=== PATIENT | female | born 1995 | race Caucasian/White ===

== ENCOUNTER → 2020-01-23 14:45 | Outpatient (BNVA) | payer MEDICAID, SELFPAY | PROVIDERS: PCP Family Medicine; Visit Provider Orthopaedic Surgery | DX: Z11.59 Encounter for screening for other viral diseases (principal); Z20.828 Contact with and (suspected) exposure to other viral communicable diseases | CPT/HCPCS: 87635 ==

== ENCOUNTER 2020-01-26 07:44 | Day surgery (SDC) | payer MEDICAID, SELFPAY ==
[2020-01-25 08:10] VITALS: BMI 35.9
[2020-01-26 07:53] VITALS: BP 137/92; PULSE 89; RESP 18; TEMP 36.3; O2SAT 98
--- NOTE | 2020-01-26 08:11 | W.PM.OPSUD ---
Surgery/Procedure H&P Update DATE OF PROCEDURE: January 26, 2020 DATE H&P PERFORMED: 01/23/20 PREOP DIAGNOSIS: Mass right wrist PLANNED PROCEDURE: Operation Date: 01/26/20 11:05 Proposed Procedures p Excision right wrist Mass Upper Extremity 31153 R22.31(Right) - Bob Mcguire MD
[2020-01-26] MEDS: sodium chloride 0.9% 1,000 ML 30 ML IV (08:15)
--- NOTE | 2020-01-26 08:17 | ANES.PREANE2 ---
Pre-Anesthetic Assessment Pre-Anesthetic Assessment: Height/Weight: Height 1.65 m Weight 97.976 kg Temp Pulse Resp BP Pulse Ox 97.3 F L 89 18 137/92 98 01/26/20 07:53 01/26/20 07:53 01/26/20 07:53 01/26/20 07:53 01/26/20 07:53 Preop Diagnosis: Mass right wrist Proposed Procedure: Operation Date: 01/26/20 11:05 Proposed Procedures p Excision right wrist Mass Upper Extremity 01229 R22.31(Right) - Bob Mcguire MD Was Beta Haylee taken within 24 hours: N/A Last intake: Intake Last Liquid Date 01/25/20 Last Solid Date 01/25/20 Social: Social History: No alcohol and No tobacco Exam: Pre-Anes Outpt Exam: alert, oriented x 3, clear to auscultation bilaterally and regular rate & rhythm Airway: Submandibular: WNL Cervical ROM: WNL MP: 2 History/ROS: No significant complaints Pulmonary: Pulmonary: None reported CV/HEM: CV/HEM: None reported : : None reported Hepatic: Hepatic: None reported GI: GI: None reported Metabolic: Metabolic: Morbid obesity Musc/skel: Musc/skel: None reported Neuropsych: Neuropsych: None reported Anesthetic Plan: ASA status: 2 Anesthesia: General Meds/Allergies Current Medications: Current Medications Generic Name Dose Route Start Last Admin Trade Name Freq PRN Reason Stop Dose Admin Sodium Chloride 1,000 mls @ 30 ml s/hr 01/26/20 08:00 01/26/20 08:15 Sodium Chloride 0.9% IV 01/27/20 07:59 30 mls/hr .Q24H TULIO Administration PFSH Anesthesia PFSH: Social History Smoking and tobacco status: current every day smoker e-cigarettes E-Cigarette Details: vaporizer device Alcohol intake: never Data Anesthesia Cardiac Studies: No Data to Display
[2020-01-26 08:23] LABS: OR HCG Qualitative Urine Negative (Negative)
[2020-01-26 09:19] VITALS: BP 96/81; PULSE 78; RESP 18; TEMP 36.5; O2SAT 98
[2020-01-26] MEDS: HYDROcodone-acetaminophen 5-325 mg Tablet 1 TAB PO (09:40)
--- NOTE | 2020-01-26 09:41 | PM.OP ---
Operative Report Date of procedure: January 26, 2020 Pre-op Diagnosis: Mass right wrist Post-op Diagnosis: Ganglion right wrist Post-op Findings: Ganglion right wrist Procedure Done: Excision ganglion right wrist Pathology: none sent Anesthesia: Nerve Block (Renay block) Estimated blood loss (mL): 5 Tourniquet time (min): 21 Findings: The patient had a ganglion approximately 15 mm x 15 mm over the central dorsal wrist. Condition: stable Disposition: PACU Procedure: The patient was taken to the operating room and given a Renay block and 1 g of Ancef. Timeout was performed. She is prepped and draped with the right arm exposed. A 2 cm long transverse incision was made in line with the flexion creases dorsally over the mass. Dissection was carried down bluntly but. The ganglion was identified in the subcutaneous tissues. Utilizing blunt hemostats circumferential dissection was accomplished elevating it off the deep extensor tendons. As no atypical characteristics were identified it was not sent for pathology. The wound was irrigated with saline. Deep tissues were closed with 3-0 Vicryl. The skin was closed with interrupted 3-0 Prolene. Compressive wrap was applied. The patient was taken to recovery room in stable condition.
[2020-01-26 11:14] VITALS: BP 120/64; PULSE 78; RESP 18; O2SAT 97
--- NOTE | 2020-01-26 20:18 | ANE.PACU2 ---
Inpatient post-anesthesia follow up: Airway intact: Yes Vital signs: Temperature 97.7 F Pulse Rate 78 Respiratory Rate 18 Blood Pressure 120/64 Pulse Oximetry 97 Oxygen Delivery Me thod Room Air Oxygen Flow Rate Fraction of Inspir ed Oxygen Hydration adequate: Yes Nausea and vomiting: No Pain level: 2 Mental status: Baseline
== END 2020-01-26 10:00 | disposition home or self-care (01) ==
PROVIDERS: Anesthesiology; PCP Family Medicine; Visit Provider Orthopaedic Surgery
PROC: (CPT 25111; principal; 2020-01-26 10:55)
DX: M67.431 Ganglion, right wrist (principal); F17.290 Nicotine dependence, other tobacco product, uncomplicated
CPT/HCPCS: 25111; 12345; 81025; 84703; J0690; J2250; J2704; J3490; J7030

== ENCOUNTER 2020-09-29 17:59 | Emergency (ER) | payer MEDICAID, SELFPAY ==
[2020-09-29 18:20] VITALS: BP 106/73; PULSE 118; RESP 16; TEMP 38.1; O2SAT 97; BMI 29.2
[2020-09-29 18:27] VITALS: O2SAT 96
--- NOTE | 2020-09-29 18:36 | XRR_ITS ---
PROCEDURE INFORMATION: Exam: XR Chest Exam date and time: 09/29/2020 6:36 PM Age: 25 years old Clinical indication: Cough TECHNIQUE: Imaging protocol: XR of the chest. Views: 1 view. COMPARISON: CR Chest 1 [place] [id number] 12/07/2016 3:07 AM FINDINGS: Lungs: No pulmonary consolidation. Pleural spaces: No pleural effusion.; No pneumothorax. Heart/Mediastinum: The cardiac silhouette is unchanged. No gross evidence of pneumomediastinum. Bones/joints: No gross fracture. XR/XR chest 1V portable [id number] IMPRESSION: No acute cardiopulmonary abnormality identified.
[2020-09-29] MEDS: acetaminophen 500 mg Tablet 1000 MG PO (18:41)
--- NOTE | 2020-09-29 18:52 | ED_ITS ---
HPI - COVID General: Chief Complaint: COVID symptoms Stated Complaint: Covid Symptoms Time Seen by Provider: 09/29/20 18:35 Triage information: Has fever, cough or shortness of breath . Exposure to COVID + person last 14 days History of Present Illness: HPI Narrative: Patient started with sore throat on Thursday symptoms since Thursday. MD complaint: reported COVID exposure and has COVID symptoms Prior covid testing: no COVID 19 common symptoms: positive fever(s), chills, cough, non-productive cough, body aches, throat pain, nasal congestion and diarrhea; negative headache(s) COVID 19 other sytmptoms: negative chest pain Onset (ago): day(s) Severity: moderate Treatment prior to arrival: ibuprofen COVID Results: SARS-CoV-2 RNA (RT-PCR) Not detected (NOT DETECTED) 01/23/20 14:45 01/23/20 Review of Systems Const: Reports: fever(s), chills and body aches Eyes: Denies: change in vision or blurry vision ENMT: Reports: throat pain and nasal congestion Card: Denies: chest pain or dyspnea on exertion Resp: Reports: non-productive cough GI: Reports: diarrhea Musc: Denies: extremity pain Skin/Breast: Denies: rash Neuro: Denies: headache(s) Psych: Denies: anxiety or depression Matthew/Lymph: Denies: easy bruising PFSH ED PFSH: Social History Smoking and tobacco status: current every day smoker e-cigarettes E-Cigarette Details: vaporizer device Alcohol intake: never Physical Exam Const: COMMON NORMALS: no acute distress Resp: COMMON NORMALS: normal respiratory effort, No retractions and No use of accessory muscles Psych: COMMON NORMALS: mental status grossly normal Course Vital Signs: Vital signs: Vital Signs Temperature 100.5 F H 09/29/20 18:20 Pulse Rate 118 H 09/29/20 18:20 Respiratory Rate 16 09/29/20 18:20 Blood Pressure 106/73 09/29/20 18:20 Pulse Oximetry 96 09/29/20 18:27 MDM - COVID COVID Results: SARS-CoV-2 RNA (RT-PCR) Not detected (NOT DETECTED) 01/23/20 14:45 01/23/20 Discharge Plan Discharge Prescriptions: No Action Graham 5-325 mg tablet 1 tab PO Q4H PRN (Reason: pain) Qty: 20 RF: 0 Coding Level of Care Code ED Photography Assistant for Terry Corley
[2020-09-29 19:21] LABS: SARS Covid-2 Antigen Positive (Negative)
[2020-09-29 20:07] VITALS: BP 117/76; PULSE 108; RESP 18; O2SAT 97
== END 2020-09-29 20:09 | disposition home or self-care (01) ==
PROVIDERS: Emergency Provider Nurse Practitioner Family; PCP Family Medicine
DX: R50.9 Fever, unspecified (principal); R05 Cough; R06.02 Shortness of breath; Z20.822 Contact with and (suspected) exposure to COVID-19; F17.290 Nicotine dependence, other tobacco product, uncomplicated
CPT/HCPCS: 71045; 87426; 99283

== ENCOUNTER 2020-10-06 18:25 | Emergency (ER) | payer MEDICAID, SELFPAY ==
[2020-10-06 18:35] VITALS: BP 104/69; PULSE 132; RESP 24; TEMP 39.4; O2SAT 97; BMI 28.3
--- NOTE | 2020-10-06 19:03 | XRR_ITS ---
PROCEDURE INFORMATION: Exam: XR Chest Exam date and time: 10/06/2020 7:03 PM Age: 25 years old Clinical indication: Fever TECHNIQUE: Imaging protocol: XR of the chest. Views: 1 view. Total images: 1 COMPARISON: CR (CHEST, ) 09/29/2020 6:41 PM FINDINGS: Lungs: Subsegmental ground-glass interstitial lung disease right lower lobe of active pneumonitis. Pleural spaces: Unremarkable. No pleural effusion. No pneumothorax. Heart/Mediastinum: Unremarkable. No cardiomegaly. Bones/joints: Scoliosis. XR/XR chest 1V portable [id number] IMPRESSION: Right lower lobe pneumonitis.
--- NOTE | 2020-10-06 19:14 | ED_ITS ---
HPI - SOB/Dyspnea General: Chief Complaint: Shortness of Breath/Dyspnea Stated Complaint: SOB/ COVID POSITIVE Time Seen by Provider: 10/06/20 19:13 History of Present Illness: HPI Narrative: 25-year-old female comes in today with complaints of general body aches and fever. Patient was ill 1 week ago and was diagnosed with COVID-19 on the . Patient had been ill about 5 days prior to that diagnosis. Patient comes in today for continued feeling of malai se and poor oral intake. Patient appears mildly unwell but not toxic. Patient appears no acute distress. MD elicited complaint: shortness of breath and cough Pertinent past history: other (covid 19 dx on ) Onset (ago): day(s) Associated symptoms: Reports fever(s) Review of Systems General: Reports: 10 or more systems reviewed and unremarkable except in HPI and below Const: Reports: fever(s) and malaise Resp: Reports: dyspnea PFSH ED PFSH: Social History Smoking and tobacco status: current every day smoker e-cigarettes E-Cigarette Details: vaporizer device Alcohol intake: never Physical Exam Const: COMMON NORMALS: no acute distress and patient oriented x3 GENERAL APPEARANCE: cooperative HENMT: COMMON NORMALS: normocephalic, TM's normal bilaterally and Normal external nose present HEAD & SCALP: normal to inspection and normocephalic NOSE: Normal external nose present TYMPANIC MEMBRANE: TM's normal bilaterally MOUTH: Normal oral and palatal mucosa present THROAT: posterior oropharynx normal Eye: GENERAL EYE: appearance normal, both eyes and all related structures Neck/C-Spine: COMMON NORMALS: full ROM Lymph: LYMPHATIC: no lymphadenopathy noted Chest: COMMONS NORMALS: normal inspection of the chest Resp: COMMON NORMALS: normal respiratory effort EFFORT & INSPECTION: Yes able to speak in complete sentences AUSCULTATION: diminished lung sounds Cardio: COMMON NORMALS: regular rate and regular rhythm RATE: regular rate RHYTHM: regular rhythm GI: COMMON NORMALS: non-tender : COMMON NORMALS: Yes no CVA tenderness BLADDER/KIDNEY EXAM: Yes no CVA tenderness Back/Pelvis: COMMON NORMALS: no CVA tenderness and thoracic and lumbar spine normal to inspection Extremity: COMMON NORMALS: normal to inspection Neuro: COMMON NORMALS: patient oriented x3 and moves all extremities Psych: COMMON NORMALS: mental status grossly normal and cooperative Skin: COMMON NORMALS: no rashes or lesions noted GENERAL SKIN EXAM: no rashes or lesions noted Course Vital Signs: Vital signs: Vital Signs Temperature 102.9 F H 10/06/20 18:35 Pulse Rate 132 H 10/06/20 18:35 Respiratory Rate 24 H 10/06/20 18:35 Blood Pressure 104/69 10/06/20 18:35 Pulse Oximetry 97 10/06/20 18:35 MDM - SOB/Dyspnea MDM Narrative: Medical decision making narrative: 25-year-old female comes in today with complaints of fever and malaise. Patient was diagnosed with COVID-19 1 week ago after being sick for about 4 to 5 days. Patient appears unwell but not toxic. Vital signs shows a temperature of 102.9. Pulse was 132. Patient reports some nausea and vomiting still. On exam respirations were even decreased in the bases. Abdomen soft nontender. Skin is warm and dry. Differential diagnosis includes COVID-19, pneumonia, dehydration. Chest x-ray notes a right lower lobe pneumonia. CBC shows a white count of 5.4, CRP was 109, CMP showed some mild decrease in potassium and sodium at 135 and 3.2. Patient was also concerned of exposure to chlamydia. I am concerned patient might have a secondary bacterial pneumonia to her COVID-19 we will start her on some doxycycline which will then also cover chlamydia, urine sample was also collected and sent to lab for gonorrhea chlamydia evaluation. Patient will be continued on doxycycline 100 mg twice a day for 7 days, patient be placed on some dexamethasone for 6 mg daily for 5 days, and patient will be given albuterol inhaler 2 puffs every 4 hours for shortness of breath, wheezing, and cough. Patient reported understanding of care plan and need for follow-up or return to the ER. Lab Data: Labs: Lab Results 10/06/20 10/06/20 10/06/20 Range/Units 20:00 20:00 20:00 WBC 5.4 (4.0-10.0) 10^3/ uL RBC 4.02 L (4.1-5.3) 10^6/u L Hgb 12.4 (11.5-15.3) g/dL Hct 34.4 L (37.0-47.0) % MCV 85.6 (81-99) fL MCH 30.8 (28.0-34.0) pg MCHC 36.0 (30.0-36.0) g/dL RDW 13.2 (12.1-15.1) % Plt Count 141 (130-400) 10^3/c mm MPV 10.4 (7.4-10.4) fL Neut % (Auto) 84.5 % Lymph % (Auto) 11.7 % Broome % (Auto) 3.2 % Eos % (Auto) 0.0 % Baso % (Auto) 0.0 % Neut # (Auto) 4.55 (1.8-7.7) 10^3/u L Lymph # (Auto) 0.6 L (0.8-4.8) 10^3/u L Broome # (Auto) 0.2 (0.2-0.9) 10^3/u L Eos # (Auto) 0.0 (0.0-0.8) 10^3/u L Baso # (Auto) 0.0 (0.0-0.1) 10^3/u L Nucleated RBC % (a uto) 0 % Nucleated RBCs # 0.0 /100WBC Sodium 135 L (136-145) mmol/L Potassium 3.2 L (3.5-5.1) mmol/L Chloride 99 (98-107) mmol/L Carbon Dioxide 23 (22-29) mmol/L Anion Gap 16.2 (5-19) BUN 13 (6-20) mg/dL Creatinine 0.7 (0.5-0.9) mg/dL GFR Calculation 101.1 (90-130) mL/min Glucose 115 (65-115) mg/dL Calculated Osmolal ity 281 L (285-295) mOsm/k g Lactic Acid (0.5-2.2) mmol/L Calcium 8.4 L (8.5-10.5) mg/dL Total Bilirubin 0.5 (0.15-1.2) mg/dL AST 25 (0-32) U/L ALT 9 (0-33) U/L Alkaline Phosphata se 37 (35-105) IU/L C-Reactive Protein 105.2 H (0.0-4.9) mg/L Total Protein 7.0 (6.6-8.7) g/dL Albumin 3.6 (3.5-5.2) g/dL Globulin 3.4 (1.3-4.6) g/dL HCG, Qual Negative (Negative) 10/06/20 Range/Units 20:00 WBC (4.0-10.0) 10^3/ uL RBC (4.1-5.3) 10^6/u L Hgb (11.5-15.3) g/dL Hct (37.0-47.0) % MCV (81-99) fL MCH (28.0-34.0) pg MCHC (30.0-36.0) g/dL RDW (12.1-15.1) % Plt Count (130-400) 10^3/c mm MPV (7.4-10.4) fL Neut % (Auto) % Lymph % (Auto) % Broome % (Auto) % Eos % (Auto) % Baso % (Auto) % Neut # (Auto) (1.8-7.7) 10^3/u L Lymph # (Auto) (0.8-4.8) 10^3/u L Broome # (Auto) (0.2-0.9) 10^3/u L Eos # (Auto) (0.0-0.8) 10^3/u L Baso # (Auto) (0.0-0.1) 10^3/u L Nucleated RBC % (a uto) % Nucleated RBCs # /100WBC Sodium (136-145) mmol/L Potassium (3.5-5.1) mmol/L Chloride (98-107) mmol/L Carbon Dioxide (22-29) mmol/L Anion Gap (5-19) BUN (6-20) mg/dL Creatinine (0.5-0.9) mg/dL GFR Calculation (90-130) mL/min Glucose (65-115) mg/dL Calculated Osmolal ity (285-295) mOsm/k g Lactic Acid 1.5 (0.5-2.2) mmol/L Calcium (8.5-10.5) mg/dL Total Bilirubin (0.15-1.2) mg/dL AST (0-32) U/L ALT (0-33) U/L Alkaline Phosphata se (35-105) IU/L C-Reactive Protein (0.0-4.9) mg/L Total Protein (6.6-8.7) g/dL Albumin (3.5-5.2) g/dL Globulin (1.3-4.6) g/dL HCG, Qual (Negative) Discharge Plan Discharge Patient Disposition: Home Clinical Impression: COVID-19 Pneumonia Qualifiers: Pneumonia type: due to unspecified organism Laterality: right Lung location: lower lobe of lung Qualified Code(s): J18.9 - Pneumonia, unspecified organism Condition: Stable Prescriptions: New doxycycline monohydrate 100 mg capsule 100 mg PO BID 7 Days Qty: 14 RF: 0 ondansetron 4 mg tablet,disintegrating 4 mg PO Q8H PRN (Reason: nausea and vomiting) Qty: 7 RF: 0 dexamethasone 6 mg tablet 6 mg PO DAILY Qty: 5 RF: 0 No Action [place] 5-325 mg tablet 1 tab PO Q4H PRN (Reason: pain) Qty: 20 RF: 0 Discharge Orders: Discharge ED (Routine); Ordered 10/06/20 Ordered By: Uli Head Referrals: Teodoro Alba MD [Primary Care Provider] - Discharge Diet: Usual diet Discharge Activity: Increase activity as tolerated Patient Instructions: Pneumonia (ED), Opioid Safety Activity Restrictions/Additional Instructions: Drink plenty of fluids. Take doxycycline twice a day with food on your stomach to prevent nausea. Use antinausea medication as needed for nausea. Take dexamethasone daily to help with cough and congestion. Use albuterol inhaler 2 puffs every 4 hours as needed for shortness of breath, wheezing, cough. Follow- up with primary care in 1 week. Return to the emergency department for new concerns. Stand Alone Forms: Work/School Release Coding Level of Care Code ED Insurance Underwriter Sales for Terry Fwnehemias Exam Comprehensive
[2020-10-06] MEDS: ketorolac 30 mg/mL INJ 15 MG IVP (20:08)
[2020-10-06] MEDS: acetaminophen 500 mg Tablet 1000 MG PO (20:09)
[2020-10-06] MEDS: dexamethasone 4 mg/mL INJ 6 MG IVP (20:09)
[2020-10-06] MEDS: sodium chloride 0.9% 1,000 ML 999 ML IV (20:10)
[2020-10-06 20:11] LABS: Hematocrit 34.4 % (37.0-47.0); Hemoglobin 12.4 g/dL (11.5-15.3); Lymphocytes # 0.6 10^3/uL (0.8-4.8); Lymphocytes % 11.7 %; Mean Corpuscular Hemoglobin 30.8 pg (28.0-34.0); Mean Corpuscular Volume 85.6 fL (81-99); Mean Platelet Volume 10.4 fL (7.4-10.4); Monocytes # 0.2 10^3/uL (0.2-0.9); Monocytes % 3.2 %; Neutrophils # 4.55 10^3/uL (1.8-7.7); Neutrophils % 84.5 %; Nucleated Red Blood Cells % 0 %; Platelet Count 141 10^3/cmm (130-400); Red Blood Count 4.02 10^6/uL (4.1-5.3); Red Cell Distribution Width 13.2 % (12.1-15.1); White Blood Count 5.4 10^3/uL (4.0-10.0)
[2020-10-06 20:33] LABS: HCG, Serum Qual Negative (Negative)
[2020-10-06 20:44] LABS: Lactic Sepsis W/Reflex 1.5 mmol/L (0.5-2.2)
[2020-10-06 20:45] LABS: Alanine Aminotransferase 9 U/L (0-33); Albumin Level 3.6 g/dL (3.5-5.2); Alkaline Phosphatase 37 IU/L (35-105); Anion Gap 16.2 (5-19); Aspartate Amino Transferase 25 U/L (0-32); Blood Urea Nitrogen 13 mg/dL (6-20); C Reactive Protein 105.2 mg/L (0.0-4.9); Calcium 8.4 mg/dL (8.5-10.5); Carbon Dioxide 23 mmol/L (22-29); Chloride 99 mmol/L (98-107); Globulin 3.4 g/dL (1.3-4.6); Glomerular Filtration Rate 101.1 mL/min (90-130); Glucose 115 mg/dL (65-115); Osmolality Calculated 281 mOsm/kg (285-295); Potassium 3.2 mmol/L (3.5-5.1); Sodium 135 mmol/L (136-145); Total Bilirubin 0.5 mg/dL (0.15-1.2)
[2020-10-06 20:59] LABS: Slide Review Slide Review Perform
[2020-10-06 21:16] VITALS: BP 106/68; PULSE 92; RESP 16; O2SAT 98
[2020-10-06 21:18] VITALS: TEMP 37.4
[2020-10-06 21:28] VITALS: BP 106/68; PULSE 92; RESP 16; TEMP 37.5; O2SAT 98
[2020-10-06] MEDS: albuterol 8 gm MDI 2 PUFF INHALATION (21:57)
[2020-10-06 21:58] VITALS: PULSE 85; RESP 18; O2SAT 98
[2020-10-06 22:03] VITALS: PULSE 89
== END 2020-10-06 22:49 | disposition home or self-care (01) ==
PROVIDERS: Emergency Provider Nurse Practitioner Family; PCP Family Medicine
DX: J12.82 Pneumonia due to coronavirus disease 2019 (principal); F17.210 Nicotine dependence, cigarettes, uncomplicated
CPT/HCPCS: 71045; 80053; 83605; 84703; 85025; 86140; 87491; 87591; 87661; 94640; 96361; 96374; 96375; 99284; J1100; J1885; J3535; J7030

== ENCOUNTER 2021-06-13 19:30 | Emergency (ER) | payer MEDICAID, SELFPAY ==
[2021-06-13 19:40] VITALS: BP 130/90; PULSE 101; RESP 16; TEMP 37.1; O2SAT 97; BMI 29.2
--- NOTE | 2021-06-13 19:53 | ED_ITS ---
HPI - Allergic Reaction General: Chief complaint: Allergic Reaction Stated complaint: alllergic reaction Time Seen by Provider: 06/13/21 19:32 History of Present Illness: HPI narrative: Patient states that she took some Bufferin about 30 minutes ago and then she started itching in her eyes started swelling. She states that she has no difficulty breathing. She not had allergic reaction to this in the past. She said stomach was hurting the last couple days and she was nauseated and that is why she took this medicine. Said she has had some diarrhea also. Had exposure to some family members with stomach flu. Associated symptoms: Reports nausea; Deny abdominal pain or vomiting Review of Systems Const: Denies: fever(s), chills or body aches Eyes: Denies: eye discomfort ENMT: Denies: throat pain Card: Denies: chest pain Resp: Denies: dyspnea GI: Reports: nausea and diarrhea; Denies: abdominal pain or vomiting Skin/Breast: Reports: pruritus (After taking Bufferin 30 minutes ago) and skin swelling; Denies: rash Neuro: Denies: headache(s) Psych: Denies: depression or suicidal ideation PFS ED PFSH: Social History Smoking and tobacco status: current every day smoker e-cigarettes E-Cigarette Details: vaporizer device Alcohol intake: never Physical Exam Const: COMMON NORMALS: no acute distress, patient oriented x3 and alert HENMT: COMMON NORMALS: normocephalic and external ears normal HEAD & SCALP: normocephalic EXTERNAL EAR: Yes external ears normal Eye: COMMON NORMALS: EOMs intact bilaterally OTHER: Puffy around the eyes. Neck/C-Spine: COMMON NORMALS: no JVD Resp: COMMON NORMALS: normal respiratory effort, No use of accessory muscles and clear to auscultation bilaterally AUSCULTATION: clear to auscultation bilaterally Cardio: COMMON NORMALS: no JVD RATE: tachycardic GI: INSPECTION: Yes normal to inspection Extremity: COMMON NORMALS: normal to inspection and full ROM Neuro: COMMON NORMALS: patient oriented x3 SENSORIUM/ORIENTATION: Yes alert Psych: COMMON NORMALS: mental status grossly normal Skin: COMMON NORMALS: no rashes or lesions noted GENERAL SKIN EXAM: no rashes or lesions noted Course Vital Signs: Vital signs: Vital Signs Temperature 98.7 F 06/13/21 19:40 Pulse Rate 82 06/13/21 20:58 Respiratory Rate 16 06/13/21 20:58 Blood Pressure 108/90 06/13/21 20:58 Pulse Oximetry 97 06/13/21 20:58 MDM - Allergic Reaction Medical Decision Making Allergic reaction to Bufferin, mild. Patient responded well to medications. Abdomen is feeling better on discharge nausea medicine was given for parent case of a gastroenteritis. Patient has no significant improvement with her nausea abdominis comfort she is to follow back up here or follow-up with her primary care provider. Patient was warned to stay away from Bufferin and to be familiar with ingredients in bufferin and check her medication she takes against what is listed onBufferin label. Discharge Plan Discharge Patient Disposition: Home Clinical Impression: Allergic reaction, Gastroenteritis Condition: Stable Prescriptions: New Reglan 10 mg tablet 10 mg PO Q6H PRN (Reason: nausea and vomiting) Qty: 10 0RF No Action medroxyprogesterone 150 mg/mL Suspension 150 mg IM .COMP 0RF Rx Instructions: EVERY 3 MONTHS Discharge Orders: Discharge ED (Routine); Ordered 06/13/21 Ordered By: Aguilar Bowman Referrals: Teodoro Alba MD [Primary Care Provider] - Discharge Diet: Advance as tolerated Discharge Activity: Increase activity as tolerated Patient Instructions: Gastroenteritis (ED), General Allergic Reaction (ED) Activity Restrictions/Additional Instructions: Follow-up with medical provider as directed. Take medications as prescribed. Return to the ER or your medical provider if condition worsens. Please read and understand discharge instructions. If any questions ask please. If stomach symptoms do not improve please follow-up here or with your primary care provider. Make sure you do not take Bufferin ever again. Read the label on Bufferin and try to stay away from any ingredients that have been listed on the Bufferin label. Coding Level of Care Code ED Wire Products Inspector for Terry Fwd Exam Comprehensive
[2021-06-13] MEDS: sodium chloride 0.9% 1,000 ML 999 ML IV (20:03)
[2021-06-13] MEDS: ondansetron 2 mg/ML SDV 2 mL 4 MG IVP (20:04)
[2021-06-13] MEDS: diphenhydrAMINE 50 mg/mL SDV 1mL IVP (20:06)
[2021-06-13 20:58] VITALS: BP 108/90; PULSE 82; RESP 16; O2SAT 97
== END 2021-06-13 20:58 | disposition home or self-care (01) ==
PROVIDERS: Emergency Provider Nurse Practitioner Family; PCP Family Medicine
DX: K52.9 Noninfective gastroenteritis and colitis, unspecified (principal); T39.015A Adverse effect of aspirin, initial encounter; F17.290 Nicotine dependence, other tobacco product, uncomplicated
CPT/HCPCS: 96361; 96374; 96375; 99283; J1200; J2405; J2930; J7030

== ENCOUNTER 2021-06-18 18:06 | Emergency (ER) | payer MEDICAID, SELFPAY ==
[2021-06-18 18:23] VITALS: BP 124/93; PULSE 96; RESP 16; TEMP 36.8; O2SAT 97; BMI 29.2
[2021-06-18 18:27] VITALS: BP 116/85; PULSE 97; RESP 18; O2SAT 97
--- NOTE | 2021-06-18 18:38 | CTR_ITS ---
PROCEDURE INFORMATION: Exam: CT Abdomen And Pelvis With Contrast Exam date and time: 06/18/2021 8:14 PM Age: 26 years old Clinical indication: Abdominal pain; Generalized; Prior surgery; Surgery date: 6+ months; Surgery type: Mercedes and hernia repair; Additional info: L lower abdominal/back pain TECHNIQUE: Imaging protocol: Computed tomography of the abdomen and pelvis with contrast. Radiation optimization: All CT scans at this facility use at least one of these dose optimization techniques: automated exposure control; mA and/or kV adjustment per patient size (includes targeted exams where dose is matched to clinical indication); or iterative reconstruction. Contrast material: OMNI 300; Contrast volume: 95 ml; Contrast route: INTRAVENOUS (IV); COMPARISON: CTA Chest w Abd/Pel w* 12/07/2016 5:38 AM RADIATION DOSE METRICS: Total DLP (mGy-cm): 1680.56 FINDINGS: Liver: Normal. No mass. Gallbladder and bile ducts: Cholecystectomy. Unremarkable biliary system. Pancreas: Normal. No ductal dilation. Spleen: Normal. No splenomegaly. Adrenal glands: Normal. No mass. Kidneys and ureters: Prominent enhancement pattern of the bilateral collecting system urothelium. Negative for hydronephrosis. Negative for urolithiasis. Patchy striated pattern of the right kidney parenchyma with scattered peripheral areas of decreased attenuation. No significant perinephric inflammation. Stomach and bowel: Unremarkable. No obstruction. No mucosal thickening. Appendix: Normal appendix. Intraperitoneal space: Trace pelvic free fluid without loculation. No free air. Vasculature: Unremarkable. No abdominal aortic aneurysm. Lymph nodes: Unremarkable. No enlarged lymph nodes. Urinary bladder: Unremarkable as visualized. Reproductive: Unremarkable as visualized. Bones/joints: Unremarkable. No acute fracture. Soft tissues: Unremarkable. CT/CT abdomen pelvis w con* [id number] IMPRESSION: Bilateral ascending urinary tract infections are suspected with early acute pyelonephritis features of the right renal parenchyma.
--- NOTE | 2021-06-18 18:38 | ED_ITS ---
HPI - Abdominal Pain General: Chief Complaint: Abdominal Pain Stated Complaint: abdominal pain Time Seen by Provider: 06/18/21 18:11 Source: patient Mode of arrival: ambulatory Limitations: no limitations History of Present Illness: Patient is a 26-year-old female presents to ED today with a complaint of left sided abdominal pains. Patient states pain of been present over the past 5 days or so. She states she had been treating at home with Tylenol, Motrin, Midol, and Aspirin. She states she was seen here at our facility a few days ago following an allergic reaction to the aspirin. She states no blood work or imaging was conducted on that visit. Patient states she is continuing to have significant discomfort. She was seen at [facility] today and referred to the ED for evaluation. She is not having nausea, vomiting, changes to her bowel movements. She has no urinary complaints. She reports her last menstrual cycle was all last month but ended a few days ago. She is not having any vaginal discharge, odor, concerns for STD. No fevers. She is currently rating her pain at 10/10. MD elicited complaint: abdominal pain Pertinent past history: none Onset (ago): day(s) Pain Consistency: constant Location: LLQ Severity: severe Pain scale (0-10): 10 Exacerbating factors: nothing Relieving factors: nothing Associated Symptoms: Denies change in bowel habits, chills, diarrhea, dysuria, fever(s), hematuria, nausea and vomiting Related Data: Date of Last Menstrual Period: 06/13/21 Review of Systems Const: Denies: fever(s), chills, body aches, fatigue or malaise Card: Denies: chest pain Resp: Denies: dyspnea GI: Reports: abdominal pain; Denies: nausea, vomiting, diarrhea or change in bowel habits : Denies: flank pain, dysuria, hematuria, vaginal odor, vaginal bleeding or vaginal discharge Musc: Denies: neck pain, back pain, extremity pain, extremity swelling, joint pain or joint swelling Skin/Breast: Denies: rash Neuro: Denies: headache(s), numbness in extremities, weakness in extremities or sensory changes [facility] PFSH: Social History Smoking and tobacco status: current every day smoker e-cigarettes E-Cigarette Details: vaporizer device Alcohol intake: never Female Reproductive History: Date of last menstrual period: 06/13/21 Physical Exam Const: COMMON NORMALS: no acute distress, patient oriented x3, no limitations and alert GENERAL APPEARANCE: cooperative NUTRITIONAL APPEARANCE: obese ORIENTATION/CONSCIOUSNESS: Yes awake, Yes oriented to person, Yes oriented to place and Yes oriented to time HENMT: COMMON NORMALS: normocephalic and atraumatic HEAD & SCALP: normocephalic and atraumatic Resp: COMMON NORMALS: normal respiratory effort and clear to auscultation bilaterally AUSCULTATION: clear to auscultation bilaterally Cardio: COMMON NORMALS: regular rate and regular rhythm RATE: regular rate RHYTHM: regular rhythm GI: COMMON NORMALS: Normal to inspection, nondistended, normoactive bowel sounds present, Soft to palpation, No hepatosplenomegaly present and no masses INSPECTION: Yes normal to inspection PALPATION: Yes Soft to palpation, Yes Tenderness to palpation present (GI) (diffusely but moreso to L lower abdomen), Yes Guarding due to palpation present (GI), No Rigid due to palpation and Yes No hepatosplenomegaly present : COMMON NORMALS: Yes no CVA tenderness BLADDER/KIDNEY EXAM: Yes no CVA tenderness Back/Pelvis: COMMON NORMALS: no CVA tenderness, thoracic and lumbar spine normal to inspection, no thoracic nor lumbar tenderness and thoraco-lumbar ROM normal Extremity: COMMON NORMALS: normal to inspection GENERAL: Yes normal exam except as noted Neuro: RUT COMA SCALE: document GCS findings Rut coma scale eye opening: Spontaneous [place] coma scale verbal response: Orientated Rut coma scale motor response: Obey commands Rut coma scale total score: 15 COMMON NORMALS: patient oriented x3, moves all extremities, no focal motor deficits and no sensory deficits noted SENSORIUM/ORIENTATION: Yes alert, Yes oriented to person, Yes oriented to place and Yes oriented to time Skin: COMMON NORMALS: no rashes or lesions noted GENERAL SKIN EXAM: no rashes or lesions noted Course Vital Signs: Vital signs: Vital Signs Temperature 98.3 F 06/18/21 18:23 Pulse Rate 74 06/18/21 20:46 Respiratory Rate 16 06/18/21 20:46 Blood Pressure 111/79 06/18/21 20:46 Pulse Oximetry 99 06/18/21 20:46 MDM - Abdominal Pain Medical Decision Making Patient appears in no acute distress. Her vital signs are perfect. Blood work shows a white count of 10.9. Remainder of blood work is fairly unremarkable. Her UA is positive for infection with 2+ blood, 2+ leuks, >100 WBCs and 3+ bacteria. CT scan showing bilateral a sending UTI with suspected right early pyelo. At this time she can attempt outpatient treatmetn for this. She was given IV Rocephin prior to discharge will be placed on Cipro twice daily for 7 days. Strict return to ED precautions given. Lab Data : 06/18/21 18:52 06/18/21 18:52 Labs/Radiology: Radiology Impressions Abdomen/Pelvis CT 06/18/21 18:38 IMPRESSION: Bilateral ascending urinary tract infections are suspected with early acute pyelonephritis features of the right renal parenchyma. Laboratory Results WBC 10.9 10^3/uL (4.0-10.0) H 06/18/21 18:52 RBC 4.43 10^6/uL (4.1-5.3) 06/18/21 18:52 Hgb 13.6 g/dL (11.5-15.3) 06/18/21 18:52 Hct 38.4 % (37.0-47.0) 06/18/21 18:52 MCV 86.7 fl (81-99) 06/18/21 18:52 MCH 30.7 pg (28.0-34.0) 06/18/21 18:52 MCHC 35.4 g/dL (30.0-36.0) 06/18/21 18:52 RDW 12.9 % (12.1-15.1) 06/18/21 18:52 Plt Count 161 10^3/cmm (130-400) 06/18/21 18:52 MPV 10.3 fL (7.4-10.4) 06/18/21 18:52 Neut % (Auto) 78.6 % 06/18/21 18:52 Lymph % (Auto) 12.6 % 06/18/21 18:52 [place] % (Auto) 7.5 % 06/18/21 18:52 Eos % (Auto) 0.6 % 06/18/21 18:52 Baso % (Auto) 0.3 % 06/18/21 18:52 Neut # (Auto) 8.55 10^3/uL (1.8-7.7) H 06/18/21 18:52 Lymph # (Auto) 1.4 10^3/uL (0.8-4.8) 06/18/21 18:52 [place] # (Auto) 0.8 10^3/uL (0.2-0.9) 06/18/21 18:52 Eos # (Auto) 0.1 10^3/uL (0.0-0.8) 06/18/21 18:52 Baso # (Auto) 0.0 10^3/uL (0.0-0.1) 06/18/21 18:52 Nucleated RBC % (auto) 0 % 06/18/21 18:52 Nucleated RBCs # 0.0 /100WBC 06/18/21 18:52 Sodium 133 mmol/L (136-145) L 06/18/21 18:52 Potassium 3.3 mmol/L (3.5-5.1) L 06/18/21 18:52 Chloride 98 mmol/L (98-107) 06/18/21 18:52 Carbon Dioxide 24 mmol/L (22-29) 06/18/21 18:52 Anion Gap 14.3 (5-19) 06/18/21 18:52 BUN 11 mg/dL (6-20) 06/18/21 18:52 Creatinine 0.6 mg/dL (0.5-0.9) 06/18/21 18:52 GFR Calculation 119.9 mL/min (90-130) 06/18/21 18:52 Glucose 108 mg/dL (65-115) 06/18/21 18:52 Calculated Osmolality 276 mOsm/kg (285-295) L 06/18/21 18:52 Calcium 9.6 mg/dL (8.5-10.5) 06/18/21 18:52 Total Bilirubin 1.2 mg/dL (0.15-1.2) 06/18/21 18:52 AST 9 U/L (0-32) 06/18/21 18:52 ALT 7 U/L (0-33) 06/18/21 18:52 Alkaline Phosphatase 48 IU/L (35-105) 06/18/21 18:52 Total Protein 7.6 g/dL (6.6-8.7) 06/18/21 18:52 Albumin 4.3 g/dL (3.5-5.2) 06/18/21 18:52 Globulin 3.3 g/dL (1.3-4.6) 06/18/21 18:52 Lipase 32 U/L (13-60) 06/18/21 18:52 HCG, Qual Negative (Negative) 06/18/21 18:52 Urine Color Yellow (Yellow) 06/18/21 18:52 Urine Appearance Hazy (CLEAR) A 06/18/21 18:52 Urine pH 7 (5-7) 06/18/21 18:52 Ur Specific [place] 1.005 (1.005-1.030) 06/18/21 18:52 Urine Protein 1+ (Negative) H 06/18/21 18:52 Urine Glucose (UA) Norm (Normal) 06/18/21 18:52 Urine Ketones Negative (Negative) 06/18/21 18:52 Urine Blood 2+ (Negative) H 06/18/21 18:52 Urine Nitrate Negative (Negative) 06/18/21 18:52 Urine Bilirubin Neg (Negative) 06/18/21 18:52 Urine Urobilinogen Neg mg/dL (Negative) 06/18/21 18:52 Ur Leukocyte Esterase 2+ (Negative) H 06/18/21 18:52 Urine RBC 5-10 /hpf (0-2) H 06/18/21 18:52 Urine WBC >100 /hpf (0-5) H 06/18/21 18:52 Ur Squamous Epith Cells 0-4 /hpf (0-5) H 06/18/21 18:52 Amorphous Sediment Not Reportable 06/18/21 18:52 Urine Bacteria 3+ /hpf (NONE) H 06/18/21 18:52 Discharge Plan Discharge Patient Disposition: Home Clinical Impression: Pyelonephritis of right kidney Condition: Stable Prescriptions: New hydrocodone-acetaminophen 5-325 mg tablet 1 tab PO Q6H PRN (Reason: pain) Qty: 14 0RF Cipro 500 mg tablet 500 mg PO Q12H Qty: 14 0RF ondansetron 4 mg tablet,disintegrating 4 mg PO Q8H PRN (Reason: nausea and vomiting) Qty: 14 0RF No Action medroxyprogesterone 150 mg/mL Suspension 150 mg IM .COMP 0RF Rx Instructions: EVERY 3 MONTHS Discharge Orders: Discharge ED (Routine); Ordered 06/18/21 Ordered By: Grace Rutherford Referrals: Teodoro Alba MD [Primary Care Provider] - Patient Instructions: Urinary Tract Infection in Women (ED), Kidney Infection (ED), Pyelonephritis Coding Level of Care Code ED Weather Anchor for Chg Fwd Exam Comprehensive
[2021-06-18] MEDS: sodium chloride 0.9% 1,000 ML 999 ML IV (18:50)
[2021-06-18 18:59] LABS: Basophils % 0.3 %; Eosinophils # 0.1 10^3/uL (0.0-0.8); Eosinophils % 0.6 %; Hematocrit 38.4 % (37.0-47.0); Hemoglobin 13.6 g/dL (11.5-15.3); Lymphocytes # 1.4 10^3/uL (0.8-4.8); Lymphocytes % 12.6 %; Mean Corpuscular HGB Conc 35.4 g/dL (30.0-36.0); Mean Corpuscular Hemoglobin 30.7 pg (28.0-34.0); Mean Corpuscular Volume 86.7 fl (81-99); Mean Platelet Volume 10.3 fL (7.4-10.4); Monocytes # 0.8 10^3/uL (0.2-0.9); Monocytes % 7.5 %; Neutrophils # 8.55 10^3/uL (1.8-7.7); Neutrophils % 78.6 %; Nucleated Red Blood Cells % 0 %; Platelet Count 161 10^3/cmm (130-400); Red Blood Count 4.43 10^6/uL (4.1-5.3); Red Cell Distribution Width 12.9 % (12.1-15.1); White Blood Count 10.9 10^3/uL (4.0-10.0)
[2021-06-18 19:23] LABS: HCG, Serum Qual Negative (Negative)
[2021-06-18 19:24] LABS: Add Urine Microscopic? YES; Bilirubin Urine Neg (Negative); Blood Urine 2+ (Negative); Glucose Urine UA Norm (Normal); Ketones Urine Negative (Negative); Leukocyte Esterase Urine 2+ (Negative); Nitrate Urine Negative (Negative); Protein Urine 1+ (Negative); Specific Gravity, Urine 1.005 (1.005-1.030); Urine Appearance Hazy (CLEAR); Urine Color Yellow (Yellow); Urobilinogen Urine Neg (Negative); pH Urine 7 (5-7)
[2021-06-18 19:25] LABS: Add Urine Culture? Yes; Bacteria Urine 3+ /hpf; Squamous Epithelial Cell Urine 0-4 /hpf (0-5); WBC Urine >100 /hpf (0-5)
[2021-06-18 19:29] LABS: Alanine Aminotransferase 7 U/L (0-33); Albumin Level 4.3 g/dL (3.5-5.2); Alkaline Phosphatase 48 IU/L (35-105); Anion Gap 14.3 (5-19); Aspartate Amino Transferase 9 U/L (0-32); Blood Urea Nitrogen 11 mg/dL (6-20); Calcium 9.6 mg/dL (8.5-10.5); Carbon Dioxide 24 mmol/L (22-29); Chloride 98 mmol/L (98-107); Globulin 3.3 g/dL (1.3-4.6); Glomerular Filtration Rate 119.9 mL/min (90-130); Glucose 108 mg/dL (65-115); Lipase 32 U/L (13-60); Osmolality Calculated 276 mOsm/kg (285-295); Potassium 3.3 mmol/L (3.5-5.1); Sodium 133 mmol/L (136-145); Total Bilirubin 1.2 mg/dL (0.15-1.2); Total Protein 7.6 g/dL (6.6-8.7)
[2021-06-18 19:41] VITALS: BP 117/81; PULSE 85; RESP 15; O2SAT 100
[2021-06-18] MEDS: iohexol 300 mg/mL 100 mL Btl IV (20:18)
[2021-06-18 20:46] VITALS: BP 111/79; PULSE 74; RESP 16; O2SAT 99
[2021-06-18] MEDS: cefTRIAXone 1,000 MG in sodium chloride 0.9% (plus) 50 ML 100 MG IV (20:59)
--- NOTE | 2021-06-18 20:59 | PC.NURSE ---
REPORT GIVEN TO ANTHONY JAY.
[2021-06-18] MEDS: morphine 4 mg/mL SDV 1 mL IVP (21:04)
[2021-06-18] MEDS: ondansetron 2 mg/ML SDV 2 mL 4 MG IVP (21:05)
[2021-06-18 21:32] VITALS: PULSE 80; RESP 16; O2SAT 98
== END 2021-06-18 21:35 | disposition home or self-care (01) ==
PROVIDERS: Emergency Medicine; Emergency Provider Physician Assistant; PCP Family Medicine
DX: N12 Tubulo-interstitial nephritis, not specified as acute or chronic (principal); F17.290 Nicotine dependence, other tobacco product, uncomplicated
CPT/HCPCS: 74177; 80053; 81001; 83690; 84703; 85025; 87077; 87086; 87186; 96365; 96375; 99284; J0696; J2270; J2405; J7030; Q9967

== ENCOUNTER → 2021-07-05 09:14 | Outpatient (BNVA) | payer MEDICAID, SELFPAY | PROVIDERS: PCP Family Medicine; Visit Provider Orthopaedic Surgery | DX: M67.431 Ganglion, right wrist (principal); F17.200 Nicotine dependence, unspecified, uncomplicated | CPT/HCPCS: 99213; 99214 ==

== ENCOUNTER 2021-07-18 05:46 | Day surgery (SDC) | payer MEDICAID, SELFPAY ==
[2021-07-17 11:22] VITALS: BMI 29.2
[2021-07-18] VITALS (9 sets, daily range): BP systolic 113–155; BP diastolic 79–100; PULSE 64–82; RESP 17–19; TEMP 36.8–37.4; O2SAT 98–100
[2021-07-18 06:29] LABS: OR HCG Qualitative Urine Negative (Negative)
[2021-07-18] MEDS: sodium chloride 0.9% 1,000 ML 30 ML IV (06:39)
--- NOTE | 2021-07-18 06:49 | ANES.PREANE2 ---
Pre-Anesthetic Assessment Height/Weight: Height 1.63 m Weight 77.111 kg Temp Pulse Resp BP Pulse Ox 98.2 F 82 17 113/79 99 07/18/21 06:14 07/18/21 06:14 07/18/21 06:14 07/18/21 06:14 07/18/21 06:14 Preop Diagnosis: Ganglion right wrist Operation Date: 07/18/21 07:00 Proposed Procedures p Excision Mass right dorsal wrist 66114/r22.31(Right) - Bob Mcguire MD Familial anesthetic complications: None Was Beta Haylee taken within 24 hours: N/A Was Clonidine taken within 24 hours: N/A Last intake: Intake Last Liquid Date 07/17/21 Last Liquid Time 21:00 Last Solid Date 07/17/21 Last Solid Time 21:00 Social Tobacco Exam alert, oriented x 3, clear to auscultation bilaterally and regular rate & rhythm Airway Mallampati: Class I Dentition: full Pulmonary None reported CV/HEM None reported None reported Hepatic None reported GI None reported Metabolic None reported Musc/skel None reported Neuropsych None reported Anesthetic Plan ASA status: 2 Anesthesia: MAC and Regional (specify below) (sree block) Risk of > 500 ml blood loss (7ml/kg in children): No Medications/Allergies Home Medications Medication Instructions Recorded Confirmed Last Taken Type medroxyprogesterone 150 mg/mL 150 mg IM .COMP 06/13/21 07/17/21 Unknown History intramuscular suspension Allergies Allergy/AdvReac Type Severity Reaction Status Date / Time aspirin Allergy ALGY-Difficulty Verified 07/05/21 09:25 Breathing hydrocodone Allergy ALGY-Difficulty Verified 07/17/21 11:21 Breathing Current Medications Generic Name Dose Route Start Last Admin Trade Name Anthonyq PRN Reason Stop Dose Admin Sodium Chloride 1,000 mls @ 30 mls/hr 07/18/21 06:15 07/18/21 06:39 Sodium Chloride 0.9% IV 07/19/21 06:14 30 mls/hr .Q24H TULIO Administration PFSH Anesthesia Social History Smoking and tobacco status: current every day smoker e-cigarettes E-Cigarette Details: vaporizer device Alcohol intake: never Female Reproductive History Date of last menstrual period: 06/13/21 Data Anesthesia Cardiac Studies: No Data to Display
[2021-07-18] MEDS: scopolamine 1.5 Patch 1 PATCH TRANSDERMA (07:04)
--- NOTE | 2021-07-18 07:07 | W.PM.OPSUD ---
Surgery/Procedure H&P Update DATE OF PROCEDURE: July 18, 2021 DATE H&P PERFORMED: 07/05/21 H&P UPDATE INFORMATION: I have reviewed H&P completed within last 30 days PREOP DIAGNOSIS: Ganglion right wrist PLANNED PROCEDURE: Operation Date: 07/18/21 07:00 Proposed Procedures p Excision Mass right dorsal wrist 93424/r22.31(Right) - Bob Mcguire MD
--- NOTE | 2021-07-18 07:55 | PM.OP ---
Operative Report Date of procedure: July 18, 2021 Pre-op diagnosis: Preop Diagnosis Ganglion right wrist Procedure done: Excision ganglion right wrist Specimens removed/disposition: 15 mm in diameter ganglion was removed from the dorsal wrist Surgeon: Bob Mcguire Anesthesia: Nerve Block ([place] block) Estimated blood loss (mL): 2 Tourniquet time (min): 23 Findings: The patient had a ganglion on the dorsal radial wrist approximately 15 mm in diameter adherent to his extensor tendons and the dorsal capsule Condition: stable Disposition: PACU Procedure: The patient was taken the operating room and given a [place] block. She is given 2 g of Ancef. A 2 cm long dorsal incision was made transversely in line with the dorsal creases of the wrist in line with the previous scar. Dissection was carried down bluntly through the deep tissues. Superficial veins were retracted bringing us to be a large ganglion. Utilizing blunt scissors the ganglion capsule was sequentially debrided from the adherent tendons down to the dorsal capsule. It was elevated with scissors and removed en bloc. Electrocautery was used at the base over the capsule curette more scarring in the bed and hopefully prevent recurrence. A tourniquet was deflated at 23 minutes with no additional significant bleeding identified. Deep 2-0 Vicryl was placed through the dorsal capsule and subcutaneous tissue closing space. Skin edges were approximated with 3-0 vertical Prolene sutures. Xeroflo gauze, 4 x 4 dressing sponges, compressive web roll, a volar splint and 2 inch Joss wrap's were applied. The patient was taken recovery room in stable condition.
[2021-07-18] MEDS: oxyCODONE-APAP 5-325 mg Tablet 1 TAB PO (08:51)
== END 2021-07-18 09:03 | disposition home or self-care (01) ==
PROVIDERS: Anesthesiology; PCP Family Medicine; Visit Provider Orthopaedic Surgery
PROC: (CPT 25111; principal; 2021-07-18 07:00)
DX: M67.431 Ganglion, right wrist (principal); F17.290 Nicotine dependence, other tobacco product, uncomplicated
CPT/HCPCS: 25111; 81025; 84703; J0690; J2250; J2704; J3490; J7030

== ENCOUNTER → 2021-07-29 15:34 | Outpatient (BNVA) | payer MEDICAID, SELFPAY | PROVIDERS: PCP Family Medicine; Visit Provider Nurse Practitioner Family | DX: Z98.890 Other specified postprocedural states (principal); M65.351 Trigger finger, right little finger; F17.210 Nicotine dependence, cigarettes, uncomplicated | CPT/HCPCS: 99213; 99214 ==

== ENCOUNTER 2021-08-04 17:59 | Emergency (ER) | payer MEDICAID, SELFPAY ==
[2021-08-04 18:13] VITALS: BP 130/94; PULSE 106; RESP 16; TEMP 37.4; O2SAT 99; BMI 25.9
--- NOTE | 2021-08-04 18:35 | ED_ITS ---
HPI - Abdominal Pain General: Chief Complaint: Abdominal Pain Stated Complaint: abd pain Time Seen by Provider: 08/04/21 18:19 Source: patient Mode of arrival: ambulatory Limitations: no limitations History of Present Illness: This patient complains of bilateral upper abdominal pain. She states the pain seems to have progressed over the past 2 to 3 days. She states that she had similar symptoms last month and was here and was diagnosed to have pyelonephritis and prescribed antibiotics. She states she took those medications and seemed to improve but now symptoms are worsening. She states she has had no inability eat or drink. She states she is has loose stools but she has had her gallbladder removed and always has loose stool. She denies any blood in her stools. She states she slept well through the night and woke approximately 6 AM and noted more pain. She denies any exacerbating fac tors. She states that she is does not have any history of food intolerance, exposure to infectious disease etc. She states she is on Depo-Provera and she has intermenstrual spotting quite frequently. No vaginal discharge or pelvic pain or history of STDs. No history of kidney stones. She has had a prior umbilical hernia repair. She does admit to taking ibuprofen recently. MD elicited complaint: abdominal pain Pertinent past history: past UTI Location: Epigastric, LUQ and RUQ Quality: cramping, stabbing and sharp Radiation: bilateral flank Migration to: no migration Exacerbating factors: movement Context: recent antibiotic use Associated Symptoms: Denies chills, dysuria, fever(s), hematochezia, hematemesis and syncope Related Data: Date of Last Menstrual Period: 06/13/21 Review of Systems Const: Denies: fever(s), chills, body aches or change in appetite Eyes: Denies: change in vision ENMT: Denies: throat pain or odynophagia Card: Denies: chest pain, palpitations, edema, syncope or pre-syncope Resp: Denies: dyspnea, productive cough or non-productive cough GI: Reports: abdominal pain; Denies: hematemesis or hematochezia : Reports: flank pain and metrorrhagia; Denies: difficulty voiding, dysuria, urinary frequency, vaginal discharge or dysmenorrhea Musc: Reports: back pain; Denies: neck pain, extremity pain or extremity swelling Skin/Breast: Denies: rash, pruritus or erythema Neuro: Denies: headache(s), numbness in extremities or weakness in extremities Psych: Denies: anxiety, depression or mood swings Matthew/Lymph: Denies: easy bruising or easy bleeding PFSH ED PFSH: Social History Smoking and tobacco status: current every day smoker e-cigarettes E-Cigarette D etails: vaporizer device Alcohol intake: never Female Reproductive History: Date of last menstrual period: 06/13/21 Physical Exam Narrative: EXAM NARRATIVE: She makes good eye contact and seems to be calm then has episodes where she few expresses some level of discomfort. Const: COMMON NORMALS: no acute distress and patient oriented x3 GENERAL APPEARANCE: cooperative HENMT: COMMON NORMALS: normocephalic, Normal nasal mucous membranes and turbinates present, moist oral mucous membranes, oropharynx normal and dentition normal HEAD & SCALP: normocephalic NOSE: Normal nasal mucous membranes and turbinates present Eye: COMMON NORMALS: Equal, round and reactive pupils present, EOMs intact bilaterally, conjunctivae normal and no scleral icterus CONJUNCTIVA: Yes conjunctivae normal PUPIL: Yes Equal, round and reactive pupils present Neck/C-Spine: COMMON NORMALS: full ROM and supple Chest: COMMONS NORMALS: normal inspection of the chest and normal palpation of entire chest wall Resp: COMMON NORMALS: normal respiratory effort, No retractions, No use of accessory muscles and clear to auscultation bilaterally AUSCULTATION: clear to auscultation bilaterally Cardio: COMMON NORMALS: regular rate, regular rhythm, No murmurs present (Cardio) and Peripheral pulses 2+ throughout RATE: regular rate RHYTHM: regular rhythm PERIPHERAL PULSES: Peripheral pulses 2+ throughout GI: COMMON NORMALS: Normal to inspection, nondistended, normoactive bowel sounds present, Soft to palpation and No hepatosplenomegaly present PALPATION: Yes Soft to palpation, Yes No hepatosplenomegaly present and No Rebound tenderness present OTHER: Abdominal examination reveals to be nondistended. Generally soft but subjective tenderness in the epigastrium as well as the left upper and right upper quadrants. Rotation of the trunk to the left on the right also seem to exacerbate her symptoms. No rebound or guarding or masses noted. Back/Pelvis: COMMON NORMALS: thoracic and lumbar spine normal to inspection and thoraco-lumbar ROM normal OTHER: Palpation soft tissues in the mid lumbar region bilaterally reproduce symptoms and and are subjectively tender. Also rotation of the trunk reproduces symptoms. There is no skin rashes, ecchymosis etc. No midline tenderness or step-off. Neuro: COMMON NORMALS: patient oriented x3, moves all extremities and no focal motor deficits Psych: COMMON NORMALS: mental status grossly normal, normal affect and speech normal SPEECH: Yes normal speech Skin: COMMON NORMALS: no rashes or lesions noted, no wounds and turgor normal GENERAL SKIN EXAM: no rashes or lesions noted and turgor normal Course Reevaluation(s): Reevaluation #1: Labs reveal that she still has evidence of significant urinary tract infection at this time. We will give her a loading dose of Rocephin and continue her on antibiotics pending urine culture. She has not had any emesis or other concerning findings while in the emergency department and is suitable and stable for outpatient management. No evidence at this time of other worrisome medical conditions. Time: 22:28 Vital Signs: Vital signs: Vital Signs Temperature 99.4 F 08/04/21 18:13 Pulse Rate 106 H 08/04/21 18:13 Respiratory Rate 16 08/04/21 18:13 Blood Pressure 130/94 08/04/21 18:13 Pulse Oximetry 99 08/04/21 18:13 MDM - Abdominal Pain Medical Decision Making Patient presents with recurrent abdominal pains and findings this evening do not suggest a surgical abdomen or any other concern however she does have recurrent findings that suggest she has a untreated upper urinary tract infection. She is clinically stable for outpatient management. We will give her 2 g loading dose of Rocephin, culture her urine and provide her additional oral antibiotics pending culture. Medical Records I reviewed the patient's medical records. CT scan from last month was negative for any significant pathology. Lab Data I reviewed the patient's lab results. : 08/04/21 20:05 08/04/21 20:05 Labs/Radiology: Laboratory Results WBC 8.6 10^3/uL (4.0-10.0) 08/04/21 20:05 RBC 4.23 10^6/uL (4.1-5.3) 08/04/21 20:05 Hgb 12.6 g/dL (11.5-15.3) 08/04/21 20:05 Hct 36.8 % (37.0-47.0) L 08/04/21 20:05 MCV 87.0 fl (81-99) 08/04/21 20:05 MCH 29.8 pg (28.0-34.0) 08/04/21 20:05 MCHC 34.2 g/dL (30.0-36.0) 08/04/21 20:05 RDW 13.1 % (12.1-15.1) 08/04/21 20:05 Plt Count 134 10^3/cmm (130-400) 08/04/21 20:05 MPV 10.2 fL (7.4-10.4) 08/04/21 20:05 Neut % (Auto) 86.7 % 08/04/21 20:05 Lymph % (Auto) 5.8 % 08/04/21 20:05 [place] % (Auto) 6.5 % 08/04/21 20:05 Eos % (Auto) 0.3 % 08/04/21 20:05 Baso % (Auto) 0.2 % 08/04/21 20:05 Neut # (Auto) 7.47 10^3/uL (1.8-7.7) 08/04/21 20:05 Lymph # (Auto) 0.5 10^3/uL (0.8-4.8) L 08/04/21 20:05 [place] # (Auto) 0.6 10^3/uL (0.2-0.9) 08/04/21 20:05 Eos # (Auto) 0.0 10^3/uL (0.0-0.8) 08/04/21 20:05 Baso # (Auto) 0.0 10^3/uL (0.0-0.1) 08/04/21 20:05 Nucleated RBC % (auto) 0 % 08/04/21 20:05 Nucleated RBCs # 0.0 /100WBC 08/04/21 20:05 Sodium 136 mmol/L (136-145) 08/04/21 20:05 Potassium 3.4 mmol/L (3.5-5.1) L 08/04/21 20:05 Chloride 99 mmol/L (98-107) 08/04/21 20:05 Carbon Dioxide 25 mmol/L (22-29) 08/04/21 20:05 Anion Gap 15.4 (5-19) 08/04/21 20:05 BUN 7 mg/dL (6-20) 08/04/21 20:05 Creatinine 0.6 mg/dL (0.5-0.9) 08/04/21 20:05 GFR Calculation 119.9 mL/min (90-130) 08/04/21 20:05 Glucose 100 mg/dL (65-115) 08/04/21 20:05 Calculated Osmolality 280 mOsm/kg (285-295) L 08/04/21 20:05 Calcium 8.7 mg/dL (8.5-10.5) 08/04/21 20:05 Total Bilirubin 1.6 mg/dL (0.15-1.2) H 08/04/21 20:05 AST 26 U/L (0-32) 08/04/21 20:05 ALT 21 U/L (0-33) 08/04/21 20:05 Alkaline Phosphatase 63 IU/L (35-105) 08/04/21 20:05 Total Protein 7.1 g/dL (6.6-8.7) 08/04/21 20:05 Albumin 4.3 g/dL (3.5-5.2) 08/04/21 20:05 Globulin 2.8 g/dL (1.3-4.6) 08/04/21 20:05 Lipase 22 U/L (13-60) 08/04/21 20:05 HCG, Qual Negative (Negative) 08/04/21 21:47 Urine Color Yellow (Yellow) 08/04/21 21:47 Urine Appearance Clear (CLEAR) 08/04/21 21:47 Urine pH 6 (5-7) 08/04/21 21:47 Ur Specific [place] 1.010 (1.005-1.030) 08/04/21 21:47 Urine Protein 1+ (Negative) H 08/04/21 21:47 Urine Glucose (UA) Norm (Normal) 08/04/21 21:47 Urine Ketones Negative (Negative) 08/04/21 21:47 Urine Blood 2+ (Negative) H 08/04/21 21:47 Urine Nitrate Positive (Negative) H 08/04/21 21:47 Urine Bilirubin Neg (Negative) 08/04/21 21:47 Urine Urobilinogen Norm mg/dL (Negative) 08/04/21 21:47 Ur Leukocyte Esterase Trace (Negative) H 08/04/21 21:47 Urine RBC 10-15 /hpf (0-2) H 08/04/21 21:47 Urine WBC 25-40 /hpf (0-5) H 08/04/21 21:47 Ur Squamous Epith Cells 5-10 /hpf (0-5) H 08/04/21 21:47 Amorphous Sediment Not Reportable 08/04/21 21:47 Urine Bacteria 4+ /hpf (NONE) H 08/04/21 21:47 Discharge Plan Discharge Patient Disposition: Home Condition: Stable Prescriptions: New cephalexin 500 mg capsule 500 mg PO TID 7 Days Qty: 21 0RF hyoscyamine sulfate [Levsin] 0.125 mg tablet 0.125 mg PO Q6H PRN (Reason: dyspepsia) Qty: 20 0RF No Action naproxen 500 mg tablet 500 mg PO BID PRN (Reason: pain) Qty: 30 0RF Percocet 5-325 mg tablet 1 tab PO Q4H PRN (Reason: pain) Qty: 20 0RF medroxyprogesterone 150 mg/mL Suspension 150 mg IM .COMP 0RF Rx Instructions: EVERY 3 MONTHS Discharge Orders: Discharge ED (Routine); Ordered 08/04/21 Ordered By: Baljeet Cuevas Referrals: Teodoro Alba MD [Primary Care Provider] - 7-10 days Discharge Diet: Usual diet Discharge Activity: Increase activity as tolerated Patient Instructions: Opioid Safety Activity Restrictions/Additional Instructions: Make sure you are drinking at least a quart of water and other fluids daily. Take the medications we have prescribed. You may use acetaminophen to help with any fever or pain. If your symptoms do not improve or worsen at any time return to this or the nearest emergency department. We will contact you if your medications need to be changed. Coding Level of Care Code ED Security Controls Assessor for Bridgetg Fwd Exam Comprehensive
[2021-08-04 20:13] LABS: Basophils % 0.2 %; Eosinophils % 0.3 %; Hematocrit 36.8 % (37.0-47.0); Hemoglobin 12.6 g/dL (11.5-15.3); Lymphocytes # 0.5 10^3/uL (0.8-4.8); Lymphocytes % 5.8 %; Mean Corpuscular HGB Conc 34.2 g/dL (30.0-36.0); Mean Corpuscular Hemoglobin 29.8 pg (28.0-34.0); Mean Platelet Volume 10.2 fL (7.4-10.4); Monocytes # 0.6 10^3/uL (0.2-0.9); Monocytes % 6.5 %; Neutrophils # 7.47 10^3/uL (1.8-7.7); Neutrophils % 86.7 %; Nucleated Red Blood Cells % 0 %; Platelet Count 134 10^3/cmm (130-400); Red Blood Count 4.23 10^6/uL (4.1-5.3); Red Cell Distribution Width 13.1 % (12.1-15.1); White Blood Count 8.6 10^3/uL (4.0-10.0)
[2021-08-04] MEDS: famotidine 20 mg/2 mL INJ 40 MG IVP (20:24)
[2021-08-04 20:28] LABS: Alanine Aminotransferase 21 U/L (0-33); Albumin Level 4.3 g/dL (3.5-5.2); Alkaline Phosphatase 63 IU/L (35-105); Anion Gap 15.4 (5-19); Aspartate Amino Transferase 26 U/L (0-32); Blood Urea Nitrogen 7 mg/dL (6-20); Calcium 8.7 mg/dL (8.5-10.5); Carbon Dioxide 25 mmol/L (22-29); Chloride 99 mmol/L (98-107); Globulin 2.8 g/dL (1.3-4.6); Glomerular Filtration Rate 119.9 mL/min (90-130); Glucose 100 mg/dL (65-115); Lipase 22 U/L (13-60); Osmolality Calculated 280 mOsm/kg (285-295); Potassium 3.4 mmol/L (3.5-5.1); Sodium 136 mmol/L (136-145); Total Bilirubin 1.6 mg/dL (0.15-1.2); Total Protein 7.1 g/dL (6.6-8.7)
[2021-08-04 22:15] LABS: HCG Qualitative Urine. Negative (Negative)
[2021-08-04 22:23] LABS: Add Urine Microscopic? YES; Bilirubin Urine Neg (Negative); Blood Urine 2+ (Negative); Glucose Urine UA Norm (Normal); Ketones Urine Negative (Negative); Leukocyte Esterase Urine Trace (Negative); Nitrate Urine Positive (Negative); Protein Urine 1+ (Negative); Urine Appearance Clear (CLEAR); Urine Color Yellow (Yellow); Urobilinogen Urine Norm (Negative); pH Urine 6 (5-7)
[2021-08-04 22:26] LABS: Add Urine Culture? Yes; Bacteria Urine 4+ /hpf; WBC Urine 25-40 /hpf (0-5)
[2021-08-04] MEDS: cefTRIAXone 2,000 MG in sodium chloride 0.9% (plus) 50 ML 100 MG IV (22:50)
[2021-08-04] MEDS: hyoscyamine ODT 0.125 mg Tablet 0.25 MG PO (22:57)
== END 2021-08-04 23:46 | disposition home or self-care (01) ==
PROVIDERS: Emergency Provider Emergency Medicine; PCP Family Medicine
DX: N39.0 Urinary tract infection, site not specified (principal); Z87.440 Personal history of urinary (tract) infections
CPT/HCPCS: 80053; 81001; 81025; 83690; 85025; 87077; 87086; 87186; 96365; 96375; 99284; J0696; J3490

== ENCOUNTER 2022-08-22 09:25 | Emergency (ER) | payer MEDICAID, SELFPAY ==
[2022-08-22 09:33] VITALS: BMI 30.9
[2022-08-22 09:37] VITALS: BP 130/97; PULSE 98; RESP 18; O2SAT 96
--- NOTE | 2022-08-22 09:45 | XR_ITS ---
WS: [id number] Portable AP upright chest, 08/22/2022 Clinical Data: trauma Comparison: Portable chest, 10/06/2020 Findings: No nodules, masses or effusions are seen. The heart is normal. The pulmonary vascularity is not increased. No pneumonia or pneumothorax is seen. XR/XR chest 1V portable [id number] Impression: Negative chest.
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
[2022-08-22 10:12] VITALS: BP 155/114; PULSE 89; RESP 16; O2SAT 97
[2022-08-22] MEDS: ketorolac 30 mg/mL INJ IVP (10:15)
[2022-08-22 10:31] LABS: Basophils % 0.6 %; Eosinophils # 0.1 10^3/uL (0.0-0.8); Eosinophils % 0.9 %; Hematocrit 41.7 % (37.0-47.0); Hemoglobin 14.5 g/dL (11.5-15.3); Lymphocytes # 0.9 10^3/uL (0.8-4.8); Lymphocytes % 14.2 %; Mean Corpuscular HGB Conc 34.8 g/dL (30.0-36.0); Mean Corpuscular Hemoglobin 30.7 pg (28.0-34.0); Mean Corpuscular Volume 88.3 fl (81-99); Mean Platelet Volume 10.4 fL (7.4-10.4); Monocytes # 0.3 10^3/uL (0.2-0.9); Monocytes % 4.2 %; Neutrophils # 5.28 10^3/uL (1.8-7.7); Neutrophils % 79.8 %; Nucleated Red Blood Cells % 0 %; Platelet Count 173 10^3/cmm (130-400); Red Blood Count 4.72 10^6/uL (4.1-5.3); Red Cell Distribution Width 13.1 % (12.1-15.1); White Blood Count 6.6 10^3/uL (4.0-10.0)
[2022-08-22 10:48] LABS: Alanine Aminotransferase 9 U/L (0-33); Albumin Level 4.7 g/dL (3.5-5.2); Alkaline Phosphatase 34 U/L (35-105); Aspartate Amino Transferase 14 U/L (0-32); Blood Urea Nitrogen 9 mg/dL (6-20); Calcium 9.1 mg/dL (8.5-10.5); Carbon Dioxide 24 mmol/L (22-29); Chloride 104 mmol/L (98-107); Globulin 2.4 g/dL (1.3-4.6); Glucose 105 mg/dL (65-115); Osmolality Calculated 287 mOsm/kg (285-295); Sodium 139 mmol/L (136-145); Total Bilirubin 0.6 mg/dL (0.15-1.2); Total Protein 7.1 g/dL (6.6-8.7)
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
[2022-08-22 11:00] VITALS: BP 126/106; PULSE 82; RESP 16; O2SAT 98
[2022-08-22 11:15] VITALS: BP 125/88; RESP 16
[2022-08-22 11:24] LABS: Add Urine Microscopic? YES; Bilirubin Urine Neg (Negative); Blood Urine Neg (Negative); Glucose Urine UA Norm (Normal); Ketones Urine Negative (Negative); Leukocyte Esterase Urine Trace (Negative); Nitrate Urine Negative (Negative); Protein Urine Neg (Negative); Urine Appearance Hazy (CLEAR); Urine Color Yellow (Yellow); Urobilinogen Urine Neg (Negative); pH Urine 5 (5-7)
[2022-08-22 11:32] LABS: Add Urine Culture? No; Bacteria Urine 1+ /hpf; Mucus Urine TRACE /hpf; RBC Urine 0-4 /hpf (0-2); Squamous Epithelial Cell Urine >100 /hpf (0-5)
== END 2022-08-22 11:17 | disposition home or self-care (01) ==
PROVIDERS: Emergency Provider Family Medicine; PCP Family Medicine
DX: S16.1XXA Strain of muscle, fascia and tendon at neck level, initial encounter (principal); S46.912A Strain of unspecified muscle, fascia and tendon at shoulder and upper arm level, left arm, initial encounter; V43.52XA Car driver injured in collision with other type car in traffic accident, initial encounter
CPT/HCPCS: 70450; 71045; 72125; 73030; 80053; 81001; 85025; 96374; 99285; J1885

== ENCOUNTER 2023-01-15 07:51 | Outpatient (CLI) | payer MEDICAID, SELFPAY ==
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
== END 2023-01-15 07:52 | disposition home or self-care (01) ==
LOC: RAD 07:52
PROVIDERS: PCP Family Medicine; Visit Provider Family Medicine
DX: M54.2 Cervicalgia (principal); Z87.828 Personal history of other (healed) physical injury and trauma
CPT/HCPCS: 72141

== ENCOUNTER 2023-06-17 10:41 | Outpatient (CLI) | payer MEDICAID, SELFPAY ==
[2023-06-17 11:01] LABS: Basophils % 0.5 %; Eosinophils # 0.1 10^3/uL (0.0-0.8); Eosinophils % 1.5 %; Hematocrit 41.9 % (36-47); Lymphocytes # 1.5 10^3/uL (0.8-4.8); Lymphocytes % 18.5 %; Mean Corpuscular HGB Conc 35.3 g/dL (30-55); Mean Corpuscular Hemoglobin 30.8 pg (27-33); Mean Corpuscular Volume 87.1 fl (85-98); Mean Platelet Volume 10.4 fL (7.4-10.4); Monocytes # 0.3 10^3/uL (0.2-0.9); Monocytes % 3.5 %; Neutrophils # 6.12 10^3/uL (1.8-7.7); Neutrophils % 75.6 %; Nucleated Red Blood Cells % 0 %; Platelet Count 202 10^3/cmm (157-399); Red Blood Count 4.81 10^6/uL (3.85-5.65); Red Cell Distribution Width 12.7 % (12.1-15.1); White Blood Count 8.09 10^3/uL (3.29-11.43)
[2023-06-17 11:39] LABS: 25 Hydroxy Vitamin D 17 ng/mL (30-100); Ferritin 96 ng/mL (15-150); Thyroid Stimulating Hormone 1.84 uIU/mL (0.27-4.20); Vitamin B12 290 pg/mL (232-1245)
[2023-06-17 11:51] LABS: Folate Level 7.2 ng/mL (4.8-37.3)
[2023-06-17 12:06] LABS: Free T4 Free Thyroxine 1.26 ng/dL (0.82-1.77)
== END 2023-06-17 10:42 | disposition home or self-care (01) ==
LOC: LAB 10:42
PROVIDERS: PCP Family Medicine; Visit Provider Nurse Practitioner Family
DX: L63.8 Other alopecia areata (principal); L21.8 Other seborrheic dermatitis; L85.8 Other specified epidermal thickening; L81.2 Freckles; L57.8 Other skin changes due to chronic exposure to nonionizing radiation; D22.5 Melanocytic nevi of trunk
CPT/HCPCS: 36415; 82306; 82607; 82728; 82746; 84439; 84443; 85025

== ENCOUNTER 2023-06-30 09:25 | Outpatient (CLI) | payer MEDICAID, SELFPAY ==
--- NOTE | 2023-06-30 09:30 | MR_ITS ---
WS: [id number] MRI BRAIN WITHOUT CONTRAST HISTORY: G43.711 - Chronic migraine without aura, intractable COMPARISON: CT head 08/22/2022 TECHNIQUE: Diffusion imaging, multiplanar T1, T2 and FLAIR imaging obtained. No evidence for acute infarct or hemorrhage. Saldaña-white matter differentiation is normal. No remote or acute infarcts are volume loss. There is a 4 mm small mass which follows fluid signal on all sequences near the LEFT transverse sinus. Benign in appearance. This is either a small arachnoid granulation or dural venous sinus cyst. Ventricles and extra-axial spaces are normal. No inferior displacement of cerebellar tonsils. The sella turcica and pituitary gland are unremarkabl e. Dural venous sinuses and craig of [place] demonstrate no abnormality on this unenhanced studies. Paranasal sinuses: Sphenoid sinus mucous retention cyst. Mastoid air cells: Normal. Calvarium and scalp: Intact. IMPRESSION: 1. Unremarkable noncontrast MRI brain. 2. No hemosiderin or prior hemorrhage. 3. Small mucous retention cyst in the sphenoid sinus.
== END 2023-06-30 09:26 | disposition home or self-care (01) ==
LOC: RAD 09:25
PROVIDERS: PCP Family Medicine; Visit Provider Specialist
DX: G43.711 Chronic migraine without aura, intractable, with status migrainosus (principal)
CPT/HCPCS: 70551

== ENCOUNTER → 2024-10-06 09:07 | Outpatient (BNVA) | payer MEDICAID, SELFPAY | PROVIDERS: PCP Family Medicine; Visit Provider Nurse Practitioner | DX: J02.9 Acute pharyngitis, unspecified (principal) | CPT/HCPCS: 87071; 87880 ==

== ENCOUNTER → 2024-11-09 17:42 | Outpatient (BNVA) | payer MEDICAID, SELFPAY | PROVIDERS: PCP Family Medicine | DX: J02.9 Acute pharyngitis, unspecified (principal) | CPT/HCPCS: 87880 ==

== ENCOUNTER → 2025-01-03 09:32 | Outpatient (BNVA) | payer MEDICAID, SELFPAY | PROVIDERS: PCP Family Medicine; Visit Provider Nurse Practitioner | DX: R39.9 Unspecified symptoms and signs involving the genitourinary system (principal) | CPT/HCPCS: 81000; 87086; 87491; 87591; 87661 ==